=== PATIENT | male | born 1960 | race Caucasian/White ===

== ENCOUNTER 2017-12-15 21:31 | Inpatient (IN) | payer OTHER ==
[~2017-12-15] VITALS: Ht 165.1 cm; Wt 84.4 kg
[2017-12-15 21:15] VITALS: BP 148/89
[2017-12-15 21:20] VITALS: BP 148/89
--- NOTE | 2017-12-15 21:35 | NUR ---
A MESSAGE WAS SENT TO LEIGHANN RAYA. AND INFORMED HIM RE PATIENT'S ARRIVAL. PT DOES NO T HAVE A LIST OF HIS HOME MEDS AT TIS TIME. HE WILL CONTACT HIS AND WILL PROVIDE US WITH THE LIST. PER HIM HE IS NOT DUE FOR ANY MEDICATION TONIGHT. WILL F/U
[2017-12-15] MEDS ORDERED: OMEG1CAP PO (22:15)
[2017-12-15] MEDS ORDERED: ATOR40TA PO (22:15)
[2017-12-15] MEDS ORDERED: METO25TA20 PO (22:15)
[2017-12-15] MEDS ORDERED: ASPI-1169 PO (22:15)
[2017-12-15] MEDS ORDERED: AMLO10TA4 PO (22:15)
[2017-12-15] MEDS ORDERED: FURO-145 PO (22:15)
[2017-12-15] MEDS ORDERED: LOSA100T15 PO (22:15)
[2017-12-15] MEDS ORDERED: OMEP20CA10 PO (22:15)
[2017-12-15] MEDS ORDERED: ACETAMINOPHEN 325 MG TABLET PO PRN (22:30)
[2017-12-15] MEDS ORDERED: LORAZEPAM INJ 2 MG/ML VIAL IV PRN (22:30)
[2017-12-15] MEDS ORDERED: Z GUARD REMEDY 2 OZ OINT TP PRN (22:30)
[2017-12-15] MEDS ORDERED: ONDANSETRON HCL/PF 4 MG/2 ML VIAL IVP PRN (22:30)
[2017-12-15] MEDS: IV NS 0.9% 1,000 ML IV PRN (22:32)
--- NOTE | 2017-12-15 22:48 | NUR ---
CALLED PHARMACY TO VERIFY THE ORDERS,
[2017-12-15] MEDS: ZOLPIDEM TARTRATE 5 MG TABLET PO PRN (22:54)
--- NOTE | 2017-12-15 22:58 | NUR ---
mikey given per pt's request for c/o insomnia,. will cont to monitor ,
[2017-12-16 00:29] LABS: URINE SODIUM, RANDOM 40 mmol/l (40-220)
[2017-12-16 00:37] LABS: OSMOLALITY,URINE 346 mOS/kg (340-1090)
--- NOTE | 2017-12-16 06:58 | NUR ---
PT IN BED AWAKE. BREATHING EVENLY. STABLE. NO ACUTE EVENT DURING THE NIGHT. ON ONGOING IVF HYDRATION. SAUL WELL. NEEDS ATTENDED. CALL LIGHT WITHIN REACH,. WILL CONT TO MONITOR AND WILL ENDORSE TO AM SHIFT FOR HEIDY.
[2017-12-16 07:04] LABS: EOSINOPHILS % (AUTO) 1.8 % (0.0-6.0); HEMATOCRIT 36 % (39-51); HEMOGLOBIN 12.1 g/dL (13.5-17.5); LYMPHOCYTES # (AUTO) 2.8 /CMM (0.8-4.8); LYMPHOCYTES % (AUTO) 54.3 % (20.0-44.0); MEAN CORPUSCULAR HGB CONC 34 g/dl (31.0-36.0); MEAN CORPUSCULAR VOLUME 98 fL (80-96); MONOCYTES # (AUTO) 0.3 /CMM (0.1-1.30); MONOCYTES % (AUTO) 5.3 % (2.0-12.0); NEUTROPHILS % (AUTO) 38.6 % (43.0-81.0); PLATELET COUNT (AUTO) 94 /CMM (150-450); RED BLOOD CELL COUNT(AUTO) 3.63 MIL/uL (4.5-6.0); WHITE BLOOD COUNT (AUTO) 5.2 K/uL (4.3-11.0)
[2017-12-16 07:30] LABS: ALBUMIN 2.7 g/dL (3.4-5.0); BILIRUBIN,TOTAL 3.3 mg/dL (0.2-1.0); CREATININE 1.6 mg/dL (0.6-1.3); MAGNESIUM 2.1 mg/dL (1.8-2.4); PHOSPHORUS 2.4 mg/dL (2.5-4.9); POTASSIUM 3.9 mmol/L (3.5-5.1); TOTAL PROTEIN, SERUM 6.5 g/dL (6.4-8.2)
[2017-12-16 07:43] LABS: EOSINOPHILS % (MANUAL) 1 % (0-4); LYMPHOCYTES % (MANUAL) 44 % (16-48); MONOCYTES % (MANUAL) 4 % (0-11.0); NEUTROPHILS % (MANUAL) 51 (42-76)
[2017-12-16 07:54] LABS: THYROID STIMULATING HORMONE 5.236 uIU/mL (0.358-3.74)
[2017-12-16 08:00] VITALS: BP 141/86
[2017-12-16] MEDS: THIAMINE HCL 100 MG TABLET PO SCH (08:17)
--- NOTE | 2017-12-16 08:19 | NUR ---
MS RN NOTES PATIENT IS A/O X4, COOPERATIVE. BREAKFAST SERVED, GOOD APPETITE. COMPLIANT WITH MEDICATION. FALL AND SAFETY PRECAUTION MAINTAINED, CALL LIGHT WITHIN REACH. WILL CONT TO MONITOR. HOME MEDS FOR REVIEW, WILL FOLLOW UP WITH MD.
[2017-12-16] MEDS: IV NS 0.9% 1,000 ML IV PRN (10:43)
[2017-12-16] MEDS ORDERED: K PHOS NEUTRAL 250 MG TABLET PO ONE (13:00)
[2017-12-16 16:00] VITALS: BP 125/72
--- NOTE | 2017-12-16 18:48 | NUR ---
MS RN CLOSING NOTES PHOSPHORUS REPLACED TODAY. IVF NS INFUSING AT 75ML/HR, TOLERATING WELL. AMBULATE TO THE BATHROOM, STANDBY ASSIST. DENIES PAIN. HOME MEDICATIONS LISTED, AWAITING FOR OUTREACH COORDINATOR KATERIN FOR REVIEW. MAINTAIN FALL AND SAFETY PRECAUTION, WILL ENDORSE TO ONCOMING RN.
--- NOTE | 2017-12-16 19:30 | NUR ---
RN NOTE; RECEIVED PT IN BED DOZING INTERMITTENTLY. BREATHING EVENLY. NO SOB.. NAD. NO C/O DISCOMFORT. NEEDS MET. BED LOW LOCKED. CALL LIGHT WITHIN REACH, WILL CONT TO MONITOR ,
[2017-12-16 20:00] VITALS: BP 128/76
[2017-12-17] MEDS: ZOLPIDEM TARTRATE 5 MG TABLET PO PRN ×2 (00:36→21:41)
--- NOTE | 2017-12-17 00:36 | NUR ---
INGRIDIEN GIVEN ORDERED PER PT'S REQUEST FOR C/O INSOMNIA. WILL CONT TO MONITOR ,
[2017-12-17] MEDS: IV NS 0.9% 1,000 ML IV PRN ×2 (00:38→13:23)
--- NOTE | 2017-12-17 06:46 | NUR ---
PT IN BED SLEEPING. STABLE W/ NO ACUTE EVENT DURING THE NIGHT. HAD A GOOD NIGHT SLEEP W/ NO S/S OF ALCOHOL WITHDRAWAL. NEEDS ,ET. CALL LIGHT WITHIN REACH,WILL CONT TO MONITOR AND WILL ENDORSE TO AM SHIFT FOR HEIDY.
[2017-12-17 07:21] LABS: BASOPHILS % (AUTO) 0.4 % (0.0-2.0); HEMATOCRIT 33 % (39-51); HEMOGLOBIN 11.3 g/dL (13.5-17.5); LYMPHOCYTES # (AUTO) 1.6 /CMM (0.8-4.8); LYMPHOCYTES % (AUTO) 32.3 % (20.0-44.0); MEAN CORPUSCULAR HGB CONC 35 g/dl (31.0-36.0); MEAN CORPUSCULAR VOLUME 98 fL (80-96); MONOCYTES # (AUTO) 0.3 /CMM (0.1-1.30); MONOCYTES % (AUTO) 5.8 % (2.0-12.0); NEUTROPHILS # (AUTO) 2.9 /CMM (1.8-8.9); NEUTROPHILS % (AUTO) 58.5 % (43.0-81.0); PLATELET COUNT (AUTO) 105 /CMM (150-450); RDW COEFFICIENT OF VARIATION 13.7 (11.5-15.0); RED BLOOD CELL COUNT(AUTO) 3.34 MIL/uL (4.5-6.0); WHITE BLOOD COUNT (AUTO) 4.9 K/uL (4.3-11.0)
[2017-12-17 07:35] LABS: CALCIUM, SERUM 7.7 mg/dL (8.5-10.1); CREATININE 1.2 mg/dL (0.6-1.3); POTASSIUM 3.1 mmol/L (3.5-5.1)
--- NOTE | 2017-12-17 07:50 | NUR ---
MS RN OPENING NOTE PATIENT IS ALERT AND ORIENTED x4. NO PAIN AT THIS TIME. NO SOB OR DISTRESS NOTED. CALL LIGHT WITHIN REACH. SAFETY MEASURES IMPLEMENTED. ABLE TO COMMUNICATE NEEDS. IV INTACT AND PATENT ON RIGHT HAND WITH IV FLUIDS RUNNING AT THIS TIME AND TOLERATING WELL. LABS PENDING THIS MORNING. WILL CONTINUE TO MONITOR THROUGHOUT SHIFT
[2017-12-17 08:00] VITALS: BP 138/94
[2017-12-17] MEDS: THIAMINE HCL 100 MG TABLET PO SCH (08:18)
[2017-12-17] MEDS: POTASSIUM CHLORIDE 20 MEQ TAB.PRT.SR PO SCH ×2 (11:07→12:40)
[2017-12-17 16:00] VITALS: BP 137/80
[2017-12-17] MEDS ORDERED: PANTOPRAZOLE 40 MG VIAL IV SCH (17:00)
[2017-12-17] MEDS: IV LR 1000 ML 1,000 ML IV PRN (17:14)
[2017-12-17 17:51] LABS: INR 0.97 (0.87-1.13)
--- NOTE | 2017-12-17 18:59 | NUR ---
MS RN CLOSING NOTE PATIENT RESTING COMFORTABLY AT THIS TIME. NO PAIN NOTED. NO SOB OR DISTRESS NOTED. CALL LIGHT WITHIN REACH. ALL DUE MEDICATIONS GIVEN ORDERED. IV INTACT AND PATENT NO REDNESS OR SWELLING NOTED. ABLE TO COMMUNICATE NEEDS. WILL ENDORSE TO SNAPPER ON NURSE FOR HEIDY
[2017-12-17 20:00] VITALS: BP 132/81
[2017-12-17] MEDS ORDERED: ATORVASTATIN 10 MG TABLET PO SCH (22:00)
[2017-12-18] MEDS: IV LR 1000 ML 1,000 ML IV PRN (06:35)
[2017-12-18 06:36] LABS: CALCIUM, SERUM 7.9 mg/dL (8.5-10.1); CREATININE 1.2 mg/dL (0.6-1.3); POTASSIUM 4.1 mmol/L (3.5-5.1)
--- NOTE | 2017-12-18 06:59 | NUR ---
MS RN NOTES AWAKE & RESPONSIVE. NOT IN ANY DISTRESS. NO SOB NOTED. DENIES ANY PAIN OR DISCOMFORT AT THIS TIME. WITH IVF INFUSING WELL. MONITORED ACCORDINGLY. CALL LIGHT WITHIN REACH. BED IN LOWEST POSITION. SR UP X2 FOR SAFETY. WILL ENDORSE TO NEXT SHIFT.
--- NOTE | 2017-12-18 07:42 | NUR ---
MS RN OPENING NOTE PATIENT IS RESTING COMFORTABLY AT THIS TIME. NO FACIAL GRIMACING NOTED FOR PAIN. NO SOB OR DISTRESS NOTED. CALL LIGHT WITHIN REACH. SAFETY MEASURES IMPLEMENTED. IV INTACT AND PATENT NO REDNESS OR SWELLING NOTED, IV FLUIDS RUNNING AT THIS TIME. ABLE TO COMMUNICATE NEEDS. WILL CONTINUE TO MONITOR THROUGHOUT SHIFT
[2017-12-18 08:00] VITALS: BP 137/77
[2017-12-18] MEDS: THIAMINE HCL 100 MG TABLET PO SCH (08:39)
[2017-12-18] MEDS ORDERED: Fenofibrate 48 MG TABLET PO SCH (09:00)
[2017-12-18 16:00] VITALS: BP 131/71
--- NOTE | 2017-12-18 16:46 | NUR ---
DISCHARGE NOTE PATIENT DISCHARGE HOME IN STABLE CONDITION. ALL DUE MEDICATIONS GIVEN ORDERED. ALL NURSING CAR NEEDS ATTENDED TO. ALL DISCHARGE INSTRUCTIONS GIVEN TO PATIENT AND AT BEDSIDE, ALL INSTRUCTIONS RETURNED BACK. PRESCRIPTION GIVEN TO PATIENT. ALL BELONGINGS WITH PATIENT UPON DISCHARGE. VITALS ARE STABLE. LEFT VIA PRIVATE CAR WITH
== END 2017-12-18 16:54 | disposition home or self-care (01) | DRG 438 ==
LOC: MEDSG2 21:31
PROVIDERS: ADMIT Internal Medicine; ATTEND Internal Medicine
DX: K85.20 Alcohol induced acute pancreatitis without necrosis or infection (principal); N17.0 Acute kidney failure with tubular necrosis; E72.20 Disorder of urea cycle metabolism, unspecified; I50.32 Chronic diastolic (congestive) heart failure; E87.1 Hypo-osmolality and hyponatremia; K70.40 Alcoholic hepatic failure without coma; I11.0 Hypertensive heart disease with heart failure; I25.10 Atherosclerotic heart disease of native coronary artery without angina pectoris; K21.9 Gastro-esophageal reflux disease without esophagitis; E78.5 Hyperlipidemia, unspecified; Z87.891 Personal history of nicotine dependence; F10.20 Alcohol dependence, uncomplicated; Y90.9 Presence of alcohol in blood, level not specified; E78.1 Pure hyperglyceridemia
CPT/HCPCS: 36415; 76705-TC; 80048-TC; 80053-TC; 80061-TC; 80305; 82140-TC; 82746; 83690-TC; 83735-TC; 83935-TC; 84100-TC; 84300-TC; 84443-TC; 85025-TC; 85730-TC; 87081-TC; C9113; J7030; J7120